=== PATIENT | male | born 1975 | race Caucasian/White ===

== ENCOUNTER 2017-05-22 08:03 | Inpatient (IN) | payer BC ==
[2017-05-22] MEDS ORDERED: Ondansetron INJ* 2 MG/ML VIAL IV ONE (08:26)
[2017-05-22] MEDS ORDERED: NS 0.9% 1000 ML* 1,000 ML IV ONE ×3 (08:26→11:15)
[2017-05-22 08:59] LABS: Hematocrit 43 % (42-52); Hemoglobin 14.6 g/dl (14.0-18.0); Mean Corpuscular HGB Conc 34 g/dl (31-36); Mean Corpuscular Hemoglobin 31 pg (27-31); Mean Corpuscular Volume 91 fL (80-94); Mean Platelet Volume 9 um3 (7.4-10.4); Red Blood Count 4.74 10^6/ul (4.0-5.4); Red Cell Distribution Width 13 % (10.5-15); White Blood Count 8.1 10^3/ul (3.5-10.8)
[2017-05-22 09:10] LABS: ALT 29 U/L (7-52); AST 17 U/L (13-39); Albumin 4.3 g/dL (3.2-5.2); Alkaline Phosphatase 58 U/L (34-104); Anion Gap 9 mmol/L (2-11); BUN/Creatinine Ratio 20.2 (8-20); Blood Urea Nitrogen 19 mg/dL (6-24); CO2 Carbon Dioxide 25 mmol/L (22-32); Calcium 8.6 mg/dL (8.6-10.3); Chloride 102 mmol/L (101-111); EGFR African American 112.6 (>60); EGFR Non-African American 87.6 (>60); Globulin 2.7 g/dL (2-4); Glucose 156 mg/dL (70-100); Potassium 3.6 mmol/L (3.5-5.0); Sodium 136 mmol/L (133-145)
[2017-05-22] MEDS ORDERED: Meclizine TAB* 12.5 MG PO ONE ×2 (09:14→11:16)
[2017-05-22] MEDS ORDERED: LORazepam INJ* 2 MG/ML 1 ML VIAL IV PUSH ONE (11:16)
[2017-05-22 14:16] LABS: Urine Bacteria Absent (Absent)
[2017-05-22 14:19] LABS: Urine Bilirubin Negative (Negative); Urine Glucose Negative (Negative); Urine Nitrite Negative (Negative)
[2017-05-22] MEDS ORDERED: Acetaminophen TAB* 325 MG PO PRN (14:47)
[2017-05-22] MEDS ORDERED: Ondansetron INJ* 2 MG/ML VIAL IV PRN (14:47)
[2017-05-22] MEDS ORDERED: Aspirin Low Dose CHEW TAB* 81 MG PO ONE ×2 (14:49→17:21)
[2017-05-22] MEDS ORDERED: NS 0.9% 1000 ML* 1,000 ML IV SCH (15:00)
[2017-05-22] MEDS ORDERED: Diazepam TAB(*) 5 MG PO SCH (15:00)
--- NOTE | 2017-05-22 15:15 | RAD ---
INDICATION: Dizziness, vomiting and nausea COMPARISON: None. TECHNIQUE: Single AP portable view of the chest was obtained. FINDINGS: Image quality is compromised due to the relative inferiority of a portable chest x-ray. The heart and mediastinum exhibit normal size and contour. The lungs are grossly clear. There is no evidence of a large pleural effusion. Visualized bones are normal for the patient's age. IMPRESSION: No radiographic evidence for acute cardiopulmonary abnormality on this portable chest x-ray.
[2017-05-22 15:24] LABS: Alcohol < 10 mg/dL (<10)
[2017-05-22] MEDS ORDERED: Iohexol 350* (CONTRAST) 500 ML MDV IV ONE (15:24)
--- NOTE | 2017-05-22 15:48 | RAD ---
INDICATION: Dizziness COMPARISON: None. TECHNIQUE: Contiguous axial sections of the brain were obtained from the skull base to the vertex without contrast. Reformats were made in the sagittal and coronal projection. FINDINGS: The ventricles, cisterns and sulci are within normal limits. The page-white matter differentiation is adequately maintained and there is no sulcal effacement. No significant focal abnormality or mass effect is present. At the right dural sinus (axial image 12 of 36, sagittal image 20 of 64) there is a hypoattenuating focus measuring up to 8 mm in greatest dimension. No significant focal osseous abnormality is present. The visualized portion of the paranasal sinuses and mastoid air cells appear clear. IMPRESSION: Overlying the right dural sinus there is an 8 mm hypoattenuating focus that is potentially a thrombus within the left dural sinus.
--- NOTE | 2017-05-22 16:04 | RAD ---
CPT II: CPT II Codes: 3100F INDICATION: Dizziness COMPARISON: Same day CT of the brain that demonstrates a filling defect in the left transverse sinus. TECHNIQUE: A CT angiogram of the head and neck was performed with 80 cc of Omnipaque 350. Contiguous axial sections were obtained from the thoracic inlet through the [place]. Images were reconstructed in the sagittal, coronal planes and in a 3-D volume rendered format. The distal cervical internal carotid artery diameter is used as the denominater for stenosis measurement. CTA NECK: The common and internal carotid arteries are patent without hemodynamically significant stenosis. Right: Just below the bifurcation the common carotid artery measures 7 mm in diameter and immediately beyond the bifurcation the internal carotid artery also measures 7 mm in diameter yielding approximately 0% degree stenosis. Left: Just below the bifurcation the common carotid artery measures 7 mm in diameter and immediately beyond the bifurcation the internal carotid artery also measures 7 mm in diameter yielding approximately 0% degree stenosis. The vertebral arteries are patent without gross abnormality. CTA of the brain: The internal carotid, anterior and middle cerebral arteries appear are patent without high grade stenosis or occlusion. The vertebral, basilar and posterior cerebral arteries appear patent without high grade stenosis or occlusion. The left posterior communicating artery is diminutive relative to the right but appears to be present, thus completing the [place]. No focal luminal filling defect, aneurysm or vascular malformation is seen. DURAL VENOUS SINUSES: As was seen on the noncontrast CT of the brain, there is an 8 mm hypoattenuating filling defect at the right transverse sinus (axial image 204 and sagittal image 19. Depicted best on the coronal plane images there are similar smaller defects partially occluding the sagittal sinus (coronal image 12, 31, 34 and 46). NONVASCULAR FINDINGS: There is moderate circumferential mucosal thickening of the right maxillary sinus and more nodular mucosal thickening of the left maxillary sinus. IMPRESSION: 1. 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 2. Normal CT arteriography of the head and neck. 3. Moderate paranasal sinus mucosal disease involving the maxillary sinuses. Findings were discussed with Felipe Pope NP over the telephone at 1600 hours on May 22, 2017.
--- NOTE | 2017-05-22 17:06 | ED ---
I, Oh,Sojanelle, scribed for Kun Israel MD on 05/22/17 at 0912 . Dizziness - HPI Summary HPI Summary: This 41 y/o male presents to ED for acute dizziness since 1999 PM yesterday. Positive n/v this morning, difficulty ambulating and with balance, and recent "head cold". Pt reports that he noticed himself listing to his right during ambulation. Negative tinnitus, hearing loss, CP, SOB, PALOMO, slurred speech, or focal weakness. Change in position makes dizziness worse. Pt is occasional drinker and nonsmoker. PMHx includes HTN that is not controlled. - History Of Current Complaint Chief Complaint: EDDizziness Stated Complaint: VOMITING Time Seen by Provider: 05/22/17 08:37 Hx Obtained From: Patient Onset/Duration: Still Present Timing: Constant Character: Room Spinning, Dizzy Aggravating Factor(s): Position Change Alleviating Factor(s): Rest Associated Signs And Symptoms: Positive: Nausea, Vomiting, Unsteady Gait. Negative: Tinnitus, Chest Pain, SOB, Fever, Slurred Speech - Allergies/Home Medications Allergies/Adverse Reactions: Allergies Allergy/AdvReac Type Severity Reaction Status Date / Time No Known Allergies Allergy Verified 05/22/17 08:36 PMH/Surg Hx/FS Hx/Imm Hx Cardiovascular History: Reports: Hx Hypertension Infectious Disease History: No Infectious Disease History: Denies: Traveled Outside the [place] in Last 30 Days - Family History Known Family History: Positive: Hypertension - Social History Alcohol Use: Daily Hx Substance Use: No Substance Use Type: Reports: None Hx Tobacco Use: No Smoking Status (MU): Never Smoked Tobacco Review of Systems Negative: Fever Negative: Other - tinnitus or loss of hearing Negative: Chest Pain Negative: Shortness Of Breath Positive: Vomiting, Nausea Neurological: Other - Positive dizziness. Difficulty with ambulation and balance. Listing to right side Negative: Headache All Other Systems Reviewed And Are Negative: Yes Physical Exam - Summary Physical Exam Summary: The patient is well-nourished in no acute distress and in no acute pain. The skin is warm and dry and skin color reflects adequate perfusion. HEENT: The head is normocephalic and atraumatic. The pupils are equal and reactive. The conjunctivae are clear and without drainage. Nares are patent and without drainage. Mouth reveals moist mucous membranes and the throat is without erythema and exudate. The external ears are intact. The ear canals are patent and without drainage. The tympanic membranes are intact. POSITIVE nystagmus. EOMI. Neck is supple with full range of motion and non-tender. There are no carotid bruits. There is no neck vein distension. Respiratory: Chest is non-tender. Lungs are clear to auscultation and breath sounds are symmetrical and equal. Cardiovascular: Hear is regular rate and rhythm. There is no murmur or rub auscultated. There is no peripheral edema and pulses are symmetrical and equal. Abdomen: The abdomen is soft and non-tender. There are normal bowel sounds heard in all four quadrants and there is no organomegaly palpated. Musculoskeletal: There is no back pain noted. Extremities are non-tender with full range of motion. There is good capillary refill. There is no peripheral edema or calf tenderness elicited. Neurological: Patient is alert and oriented to person, place and time. The patient has symmetrical motor strength in all four extremities. Deep tendon reflexes are symmetrical and equal in all four extremities. Negative pronator drift at all four extremities. Normal [id number]. Normal [id number]. No vision deficiency. Psychiatric: The patient has an appropriate affect and does not exhibit any anxiety or depression. Triage Information Reviewed: Yes Vital Signs On Initial Exam: Initial Vitals Temp Pulse Resp BP Pulse Ox 96.8 F 93 18 180/109 99 05/22/17 08:03 05/22/17 08:03 05/22/17 08:03 05/22/17 08:03 05/22/17 08:03 Vital Signs Reviewed: Yes - Maryanne Coma Scale Coma Scale Total: 15 Diagnostics - Vital Signs Vital Signs Temp Pulse Resp BP Pulse Ox 05/22/17 08:03 96.8 F 93 18 180/109 99 - Laboratory Lab Results: Lab Results 05/22/17 Range/Units 08:42 WBC 8.1 (3.5-10.8) 10^3/ul RBC 4.74 (4.0-5.4) 10^6/ul Hgb 14.6 (14.0-18.0) g/dl Hct 43 (42-52) % MCV 91 (80-94) fL MCH 31 (27-31) pg MCHC 34 (31-36) g/dl RDW 13 (10.5-15) % Plt Count 220 (150-450) 10^3/ul MPV 9 (7.4-10.4) um3 Neut % (Auto) 83.4 H (38-83) % Lymph % (Auto) 12.1 L (25-47) % Saline % (Auto) 3.3 (1-9) % Eos % (Auto) 0.7 (0-6) % Baso % (Auto) 0.5 (0-2) % Absolute Neuts (auto) 6.7 (1.5-7.7) 10^3/ul Absolute Lymphs (auto) 1.0 (1.0-4.8) 10^3/ul Absolute Monos (auto) 0.3 (0-0.8) 10^3/ul Absolute Eos (auto) 0.1 (0-0.6) 10^3/ul Absolute Basos (auto) 0 (0-0.2) 10^3/ul Absolute Nucleated RBC 0 10^3/ul Nucleated RBC % 0 Result Diagrams: 05/22/17 08:42 05/22/17 08:42 Lab Statement: Any lab studies that have been ordered have been reviewed, and results considered in the medical decision making process. - EKG 0902 Cardiac Rate: NL - 80 bpm EKG Rhythm: Sinus Rhythm EKG Interpretation: NON specific STEMI change. Normal axis. no STEMI. Re-Evaluation - Re-Evaluation First Eval Re-Evaluation Time: 11:16 Comment: MD in room to re-evaluate pt. Lab work is reviewed with pt. Pt is unsure if he is feeling better. NS IV, Lorazepam, and additional dose meclizine are ordered. Second Eval Re-Evaluation Time: 13:40 Comment: MD in room to re-evaluate pt. Pt states that he is feeling somewhat better. Pt will be evaluated to see if he can tolerate ambulation to bathroom. Third Eval Re-Evaluation Time: 14:08 Comment: in room to re-evaluate pt after the road test. Dizzy Course/Dx - Course Assessment/Plan: This 41 y/o male presents to ED for room spinning dizziness since 2000 PM last night with n/v this morning. Upon examination pt is noted with nystagmus but otherwise normal neurological exam. Bloodwork and UA is wnl except for lactic acid of 2.4. Pt was given meclizine, lorazepam, and IV NS in ED, but symptoms did not improve. Pt still had difficulty tolerating ambulation to bathroom from his ED room. Hospital consult was made with Dr. Ocasio, and he is accepted for admission. - Diagnoses Differential Diagnosis/HQI/PQRI: Other Provider Diagnoses: posterior basilar insufficiency, Vertigo - Provider Notifications Discussed Care Of Patient With: Alison Ocasio Time Discussed With Above Provider: 14:10 Instructed by Provider To: Admit As Inpatient - Critical Care Time Critical Care Time: 30-74 min - 30 minutes Discharge - Discharge Plan Condition: Stable Disposition: ADMITTED TO [facility] The documentation as recorded by the Zi mkceon Soohyun accurately reflects the service I personally performed and the decisions made by , Kun Israel MD.
[2017-05-22] MEDS ORDERED: Meclizine TAB* 12.5 MG PO PRN (17:50)
[2017-05-22] MEDS ORDERED: Thiamine IV 100 MG/ML VIAL (only for Bannana Bags !) IV SCH (18:00)
[2017-05-22] MEDS: Enoxaparin(*) 80 MG/0.8 ML SYR SUBCUT SCH (18:02)
[2017-05-22] MEDS: Thiamine IV* 500 MG in NS 0.9% 250 ML* 250 ML IV SCH (19:09)
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
[2017-05-23 05:03] LABS: BUN/Creatinine Ratio 10.5 (8-20); Calcium 7.8 mg/dL (8.6-10.3); EGFR African American 124.8 (>60); EGFR Non-African American 97.1 (>60); HDL Cholesterol 41.1 mg/dL; Potassium 3.1 mmol/L (3.5-5.0)
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
[2017-05-23 05:14] LABS: Hematocrit 38 % (42-52); Hemoglobin 12.8 g/dl (14.0-18.0); Mean Corpuscular HGB Conc 34 g/dl (31-36); Mean Corpuscular Hemoglobin 31 pg (27-31); Mean Corpuscular Volume 91 fL (80-94); Mean Platelet Volume 9 um3 (7.4-10.4); Red Blood Count 4.14 10^6/ul (4.0-5.4); Red Cell Distribution Width 13 % (10.5-15); White Blood Count 9.8 10^3/ul (3.5-10.8)
[2017-05-23] MEDS: Enoxaparin(*) 100 MG/ML SYR SUBCUT SCH ×2 (06:00→17:46)
[2017-05-23] MEDS: Enoxaparin(*) 80 MG/0.8 ML SYR SUBCUT SCH (06:01)
[2017-05-23] MEDS: Thiamine IV* 500 MG in NS 0.9% 250 ML* 250 ML IV SCH (08:17)
[2017-05-23] MEDS: Aspirin Low Dose CHEW TAB* 81 MG PO SCH (08:18)
--- NOTE | 2017-05-23 11:43 | RAD ---
Indication: Vertigo. MRV of the brain was performed utilizing 2-D viqo-mr-gazpby technique. Multiple maximum intensity projected images were obtained. The sagittal sinus, vein of Catarino and the straight sinus all appear to be patent. There is a filling defect in the right transverse sinus however no obstruction of flow is noted. This is felt to represent an arachnoid granulation. The left transverse sinus is hypoplastic. The internal jugular veins are patent. IMPRESSION: Filling defect in the right transverse sinus. This is felt to represent arachnoid granulations. No obstruction is noted. Dominant right transverse sinus.
--- NOTE | 2017-05-23 12:48 | PN ---
Subjective Date of Service: 05/23/17 Interval History: Pt continues to c/o everything spinning when he opens his eyes, worse when moving his head. Denies double vision.Nausea present yesterday resolved. Objective Active Medications: Acetaminophen (Tylenol Tab*) 650 mg PO Q4H PRN PRN Reason: FEVER/PAIN Aspirin (Aspirin Low Dose Tab*) 81 mg PO DAILY [facility] Last Admin: 05/23/17 08:18 Dose: 81 mg Atorvastatin Calcium (Lipitor*) 40 mg PO 1700 MARY Enoxaparin Sodium (Lovenox(*)) 88 mg SUBCUT Q12H [facility] Last Admin: 05/23/17 06:00 Dose: 88 mg Thiamine HCl 500 mg/ Sodium (Chloride) 255 mls @ 510 mls/hr IV DAILY [facility] Last Admin: 05/23/17 08:17 Dose: 510 mls/hr Meclizine HCl (Antivert Tab*) 25 mg PO Q8HR PRN PRN Reason: DIZZINESS Last Admin: 05/23/17 08:17 Dose: 25 mg Ondansetron HCl (Zofran Inj*) 4 mg IV Q6H PRN PRN Reason: NAUSEA Last Admin: 05/22/17 17:58 Dose: 4 mg Vital Signs 05/23/17 05/23/17 11:05 11:15 Temperature 98.4 F Pulse Rate 76 Respiratory 10 16 Rate Blood Pressure 160/98 (mmHg) O2 Sat by Pulse 93 Oximetry Oxygen Devices in Use Now: None Appearance: 41 yo M in nAd, aAOx3 Eyes: No Scleral Icterus, PERRLA Ears/Nose/Mouth/Throat: NL Teeth, Lips, Gums, Mucous Membranes Moist Neck: NL Appearance and Movements; NL JVP, Trachea Midline Respiratory: Symmetrical Chest Expansion and Respiratory Effort, Clear to Auscultation Cardiovascular: NL Sounds; No Murmurs; No JVD, RRR Abdominal: NL Sounds; No Tenderness; No Distention, No Hepatosplenomegaly Lymphatic: No Cervical Adenopathy Extremities: No Edema, No Clubbing, Cyanosis Skin: No Rash or Ulcers, No Nodules or Sclerosis Neurological: Alert and Oriented x 3, - - multidirectional nystagmus present in both eyes. finger to nose not dysmetric, motor 5/5 b/l, speech clear. significant ataxia, unable to stand up without being propped by the bed. Result Diagrams: 05/23/17 04:27 05/23/17 04:26 Additional Lab and Data: Lab Results 05/22/17 Range/Units 08:42 WBC 8.1 (3.5-10.8) 10^3/ul RBC 4.74 (4.0-5.4) 10^6/ul Hgb 14.6 (14.0-18.0) g/dl Hct 43 (42-52) % MCV 91 (80-94) fL MCH 31 (27-31) pg MCHC 34 (31-36) g/dl RDW 13 (10.5-15) % Plt Count 220 (150-450) 10^3/ul MPV 9 (7.4-10.4) um3 Neut % (Auto) 83.4 H (38-83) % Lymph % (Auto) 12.1 L (25-47) % Storey % (Auto) 3.3 (1-9) % Eos % (Auto) 0.7 (0-6) % Baso % (Auto) 0.5 (0-2) % Absolute Neuts (auto) 6.7 (1.5-7.7) 10^3/ul Absolute Lymphs (auto) 1.0 (1.0-4.8) 10^3/ul Absolute Monos (auto) 0.3 (0-0.8) 10^3/ul Absolute Eos (auto) 0.1 (0-0.6) 10^3/ul Absolute Basos (auto) 0 (0-0.2) 10^3/ul Absolute Nucleated RBC 0 10^3/ul Nucleated RBC % 0 Assess/Plan/Problems-Billing Assessment: 41 yo M with h/o HTN(not treated) presents with sudden onset of "dizziness". 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 MRV neg. MRI brain pending. Echo with bubble pending Cont full anticoagulation with lovenox and ASA. Appreciate neurology consult. D/w Dr. Haji hypercoag w/up pending Will start lipitor for LDL at 99. (2) DVT prophylaxis Comment: lovenox Status and Disposition: inpatient
[2017-05-23] MEDS ORDERED: Potassium Chlor TAB* 20 MEQ TAB.ER PO ONE (13:01)
--- NOTE | 2017-05-23 15:33 | ECHO ---
Patient: QUITA ANNE [facility] Rec#: [id number] : 1975 Date: 05/23/2017 Age: 41y Height: 175.26 cm / 69.0 in Weight: 88.45 kg / 194.9 lbs Sex: M BSA: 2.04 Room#: 431 Admit Date#: 05/22/2017 Type: Inpatient Referring: Felipe Pope NP Reading: Lyle Hurt MD Elementary [employer] Teacher: Kayce Howe RDCS,RDMS Transthoracic Echocardiogram Indication: CVA BP: 138/84 HR: 82 Rhythm: NSR Findings History: HTN Technical Comments: The study quality is good. Completed 1420 Left Ventricle: The left ventricular chamber size is normal.Borderline LVH The estimated ejection fraction is 60-65%. Normal left ventricular diastolic filling is observed. Left Atrium: The left atrial chamber size is normal. Right Ventricle: The right ventricular chamber size and systolic function are within normal limits. Right Atrium: The right atrial cavity size is normal. A patent foramen ovale is not demonstrated with color Doppler and agitated contrast. Aortic Valve: The aortic valve is trileaflet. There is no evidence of aortic valve thickening. Systolic excursion of the aortic valve is normal. There is mild aortic regurgitation. There is no evidence of aortic stenosis. Mitral Valve: The mitral valve leaflets appear normal. There is a trace of mitral regurgitation. There is no evidence of mitral stenosis. Tricuspid Valve: The tricuspid valve leaflets are normal. There is trace tricuspid regurgitation. Unable to estimate the right ventricular systolic pressure. Pulmonic Valve: There is no evidence of pulmonic valve thickening. There is a trace pulmonic regurgitation. Pericardium: There is no significant pericardial effusion. Aorta: There is mild dilatation of the ascending aorta. There is no dilatation of the aortic arch. There is no dilation of the aortic root. Pulmonary Artery: The main pulmonary artery is not well visualized. Venous: The inferior vena cava appears normal in size. There is an approximate 50% respiratory change in the inferior vena cava dimension. Contrast: Intravenous agitated saline contrast was used to assess intracardiac shunting. Images 79 and 80 Summary: There was not any prior study for comparison. Conclusions The left ventricular chamber size is normal. Borderline LVH The estimated ejection fraction is 60-65%. There is mild aortic regurgitation. There is a trace of mitral regurgitation. There is trace tricuspid regurgitation. There is a trace pulmonic regurgitation. There is mild dilatation of the ascending aorta. Measurements Name Value Normal Range RVIDd (AP) 2D 2 cm (0.9 - 2.6) RVDdMajor (2D) 2.7 cm (2.2 - 4.4) RAd ISD 4CH 4.7 cm (3.4 - 4.9) RA (A4C)W 3.9 cm (2.9 - 4.6) IVSd (2D) 1.1 cm (0.6 - 1) LVPWd (2D) 1.1 cm (0.6 - 1) LVIDd (2D) 4.5 cm (3.6 - 5.4) LVIDs (2D) 3.1 cm - LV FS (2D) 30 % (25 - 45) Aortic Annulus 2.2 cm (1.4 - 2.6) Ao root diameter (2D) 3.4 cm (2.1 - 3.5) Ascending Ao 3.8 cm (2.1 - 3.4) Aortic arch 3.2 cm (1.8 - 3.4) LA dimension (AP) 2D 3.5 cm (2.3 - 3.8) LAd ISD 4CH 5.6 cm (2.9 - 5.3) LA ISD 4CH W 3.7 cm (2.5 - 4.5) Name Value Normal Range LA ESV SP 4CH (A/L) 42.53 ml - LA ESV SP 2CH (A/L) 40.12 ml - LA ESV BP (A/L) 43.83 ml - LA ESV BP (A/L) index 21.4 ml/m2 - LA ESV SP 4CH (MOD) 40.29 ml - LA ESV SP 2CH (MOD) 36.72 ml - Name Value Normal Range MV E-wave Vmax 1 m/sec - MV deceleration time 145 msec - MV A-wave Vmax 0.7 m/sec - MV E:A ratio 1.4 ratio - P. vein S-wave Vmax 0.5 m/sec - P. vein D-wave Vmax 0.4 m/sec - P. vein S:D Vmax ratio 1.3 ratio - P. vein A-wave duration 90 msec - LV septal e' Vmax 0.09 m/sec - LV lateral e' Vmax 0.1 m/sec - LV E:e' septal ratio 11 ratio - LV E:e' lateral ratio 10 ratio - Name Value Normal Range AV Vmax 1.5 m/sec - AV VTI 32 cm - AV peak gradient 9 mmHg - AV mean gradient 5.6 mmHg - LVOT Vmax 1.3 m/sec - LVOT VTI 24.7 cm - LVOT peak gradient 7 mmHg - LVOT mean gradient 3.3 mmHg - LIDA Vmax 0.9 m/sec - Name Value Normal Range RAP 8 mmHg - IVC diameter 1.9 cm - Name Value Normal Range PV Vmax 0.7 m/sec - PV peak gradient 2 mmHg -
[2017-05-23] MEDS: Atorvastatin* 40 MG TAB PO SCH (17:45)
[2017-05-24] MEDS: Omeprazole CAP* 20 MG PO SCH (05:20)
[2017-05-24] MEDS: Enoxaparin(*) 100 MG/ML SYR SUBCUT SCH ×2 (05:20→19:54)
--- NOTE | 2017-05-24 07:45 | RAD ---
INDICATION: Headaches, dizziness. Image sequences: Sagittal and axial T1, axial T2, FLAIR, diffusion and susceptibility weighted images of the brain were obtained. Ventricular structures are midline. No midline shift is noted. The extra-axial spaces are unremarkable. There is no evidence of intracranial mass or hemorrhage. Signal abnormality is noted in the right frontal lobe. This may represent an old infarct; however, contrast study is suggested to exclude a mass. Tiny area of restriction of diffusion is noted in the right medulla which may represent a tiny infarct. Prominent Virchow David spaces Are noted. Mucosal thickening of the maxillary sinuses are noted. Mastoid air cells and paranasal sinuses are otherwise remarkable. There is focal abnormality involving the right dural sinus which is consistent with an arachnoid granulation. 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 Signal abnormality in the right frontal lobe without restriction of diffusion. Postcontrast study is suggested to exclude an enhancing mass. No other masses are noted. Chronic sinusitis involving the maxillary sinuses. Defect in the right transverse sinus likely represents an arachnoid granulation.
[2017-05-24] MEDS: Aspirin Low Dose CHEW TAB* 81 MG PO SCH (09:06)
[2017-05-24] MEDS: Thiamine IV* 500 MG in NS 0.9% 250 ML* 250 ML IV SCH (09:06)
--- NOTE | 2017-05-24 11:02 | PN ---
Subjective Date of Service: 05/24/17 Objective Active Medications: Acetaminophen (Tylenol Tab*) 650 mg PO Q4H PRN PRN Reason: FEVER/PAIN Aspirin (Aspirin Low Dose Tab*) 81 mg PO DAILY [facility] Last Admin: 05/24/17 09:06 Dose: 81 mg Atorvastatin Calcium (Lipitor*) 40 mg PO 1700 [facility] Last Admin: 05/23/17 17:45 Dose: 40 mg Enoxaparin Sodium (Lovenox(*)) 88 mg SUBCUT Q12H [facility] Last Admin: 05/24/17 05:20 Dose: 88 mg Thiamine HCl 500 mg/ Sodium (Chloride) 255 mls @ 510 mls/hr IV DAILY [facility] Last Admin: 05/24/17 09:06 Dose: 510 mls/hr Meclizine HCl (Antivert Tab*) 25 mg PO Q8HR PRN PRN Reason: DIZZINESS Last Admin: 05/23/17 08:17 Dose: 25 mg Omeprazole (Prilosec Cap*) 20 mg PO 0600 [facility] Last Admin: 05/24/17 05:20 Dose: 20 mg Ondansetron HCl (Zofran Inj*) 4 mg IV Q6H PRN PRN Reason: NAUSEA Last Admin: 05/22/17 17:58 Dose: 4 mg Vital Signs 05/23/17 05/23/17 05/23/17 11:05 11:15 12:00 Temperature 98.4 F Pulse Rate 76 Respiratory 10 16 13 Rate Blood Pressure 160/98 (mmHg) O2 Sat by Pulse 93 Oximetry 05/23/17 05/23/17 05/23/17 13:00 14:02 15:00 Temperature Pulse Rate Respiratory 6 18 3 Rate Blood Pressure (mmHg) O2 Sat by Pulse Oximetry 05/23/17 05/23/17 05/23/17 15:10 16:00 17:00 Temperature 97.8 F Pulse Rate 76 Respiratory 20 0 0 Rate Blood Pressure 154/101 (mmHg) O2 Sat by Pulse 95 Oximetry 05/23/17 05/23/17 05/23/17 18:00 19:00 19:29 Temperature 98.5 F Pulse Rate 84 Respiratory 0 0 20 Rate Blood Pressure 160/89 (mmHg) O2 Sat by Pulse 95 Oximetry 05/23/17 05/23/17 05/23/17 20:00 20:25 21:00 Temperature Pulse Rate Respiratory 2 20 0 Rate Blood Pressure (mmHg) O2 Sat by Pulse Oximetry 05/23/17 05/23/17 05/23/17 22:00 23:00 23:26 Temperature 98.6 F Pulse Rate 74 Respiratory 0 0 16 Rate Blood Pressure 143/89 (mmHg) O2 Sat by Pulse 96 Oximetry 05/23/17 05/24/17 05/24/17 23:57 00:00 01:00 Temperature Pulse Rate Respiratory 0 0 19 Rate Blood Pressure (mmHg) O2 Sat by Pulse Oximetry 05/24/17 05/24/17 05/24/17 02:00 03:00 03:32 Temperature 98.3 F Pulse Rate 70 Respiratory 22 17 16 Rate Blood Pressure 138/86 (mmHg) O2 Sat by Pulse 96 Oximetry 05/24/17 05/24/17 05/24/17 04:00 07:12 08:00 Temperature 98.6 F Pulse Rate 70 Respiratory 0 16 16 Rate Blood Pressure 143/88 (mmHg) O2 Sat by Pulse 93 Oximetry Oxygen Devices in Use Now: None Result Diagrams: 05/23/17 04:27 05/23/17 04:26 Additional Lab and Data: Lab Results 05/22/17 Range/Units 08:42 WBC 8.1 (3.5-10.8) 10^3/ul RBC 4.74 (4.0-5.4) 10^6/ul Hgb 14.6 (14.0-18.0) g/dl Hct 43 (42-52) % MCV 91 (80-94) fL MCH 31 (27-31) pg MCHC 34 (31-36) g/dl RDW 13 (10.5-15) % Plt Count 220 (150-450) 10^3/ul MPV 9 (7.4-10.4) um3 Neut % (Auto) 83.4 H (38-83) % Lymph % (Auto) 12.1 L (25-47) % Hubbard % (Auto) 3.3 (1-9) % Eos % (Auto) 0.7 (0-6) % Baso % (Auto) 0.5 (0-2) % Absolute Neuts (auto) 6.7 (1.5-7.7) 10^3/ul Absolute Lymphs (auto) 1.0 (1.0-4.8) 10^3/ul Absolute Monos (auto) 0.3 (0-0.8) 10^3/ul Absolute Eos (auto) 0.1 (0-0.6) 10^3/ul Absolute Basos (auto) 0 (0-0.2) 10^3/ul Absolute Nucleated RBC 0 10^3/ul Nucleated RBC % 0 Assess/Plan/Problems-Billing Assessment: 41 yo M with h/o HTN(not treated) presents with sudden onset of "dizziness". 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 MRV neg. MRI brain pending. Echo with bubble pending Cont full anticoagulation with lovenox and ASA. Appreciate neurology consult. D/w Dr. Haji hypercoag w/up pending Will start lipitor for LDL at 99. (2) DVT prophylaxis Comment: lovenox Status and Disposition: inpatient
--- NOTE | 2017-05-24 11:09 | PN ---
Subjective Date of Service: 05/24/17 Interval History: Pt feels better, nystagmus improving, able to ambulate short distance with walker Objective Active Medications: Acetaminophen (Tylenol Tab*) 650 mg PO Q4H PRN PRN Reason: FEVER/PAIN Aspirin (Aspirin Low Dose Tab*) 81 mg PO DAILY [facility] Last Admin: 05/24/17 09:06 Dose: 81 mg Atorvastatin Calcium (Lipitor*) 40 mg PO 1700 [facility] Last Admin: 05/23/17 17:45 Dose: 40 mg Enoxaparin Sodium (Lovenox(*)) 88 mg SUBCUT Q12H [facility] Last Admin: 05/24/17 05:20 Dose: 88 mg Meclizine HCl (Antivert Tab*) 25 mg PO Q8HR PRN PRN Reason: DIZZINESS Last Admin: 05/23/17 08:17 Dose: 25 mg Omeprazole (Prilosec Cap*) 20 mg PO 0600 [facility] Last Admin: 05/24/17 05:20 Dose: 20 mg Ondansetron HCl (Zofran Inj*) 4 mg IV Q6H PRN PRN Reason: NAUSEA Last Admin: 05/22/17 17:58 Dose: 4 mg Vital Signs 05/23/17 05/23/17 05/23/17 11:15 12:00 13:00 Temperature 98.4 F Pulse Rate 76 Respiratory 16 13 6 Rate Blood Pressure 160/98 (mmHg) O2 Sat by Pulse 93 Oximetry 05/23/17 05/23/17 05/23/17 14:02 15:00 15:10 Temperature 97.8 F Pulse Rate 76 Respiratory 18 3 20 Rate Blood Pressure 154/101 (mmHg) O2 Sat by Pulse 95 Oximetry 05/23/17 05/23/17 05/23/17 16:00 17:00 18:00 Temperature Pulse Rate Respiratory 0 0 0 Rate Blood Pressure (mmHg) O2 Sat by Pulse Oximetry 05/23/17 05/23/17 05/23/17 19:00 19:29 20:00 Temperature 98.5 F Pulse Rate 84 Respiratory 0 20 2 Rate Blood Pressure 160/89 (mmHg) O2 Sat by Pulse 95 Oximetry 05/23/17 05/23/17 05/23/17 20:25 21:00 22:00 Temperature Pulse Rate Respiratory 20 0 0 Rate Blood Pressure (mmHg) O2 Sat by Pulse Oximetry 05/23/17 05/23/17 05/23/17 23:00 23:26 23:57 Temperature 98.6 F Pulse Rate 74 Respiratory 0 16 0 Rate Blood Pressure 143/89 (mmHg) O2 Sat by Pulse 96 Oximetry 05/24/17 05/24/17 05/24/17 00:00 01:00 02:00 Temperature Pulse Rate Respiratory 0 19 22 Rate Blood Pressure (mmHg) O2 Sat by Pulse Oximetry 05/24/17 05/24/17 05/24/17 03:00 03:32 04:00 Temperature 98.3 F Pulse Rate 70 Respiratory 17 16 0 Rate Blood Pressure 138/86 (mmHg) O2 Sat by Pulse 96 Oximetry 05/24/17 05/24/17 07:12 08:00 Temperature 98.6 F Pulse Rate 70 Respiratory 16 16 Rate Blood Pressure 143/88 (mmHg) O2 Sat by Pulse 93 Oximetry Oxygen Devices in Use Now: None Appearance: 41 yo M in nAd, aAOx3 Eyes: No Scleral Icterus, PERRLA Ears/Nose/Mouth/Throat: NL Teeth, Lips, Gums, Mucous Membranes Moist Neck: NL Appearance and Movements; NL JVP, Trachea Midline Respiratory: Symmetrical Chest Expansion and Respiratory Effort, Clear to Auscultation Cardiovascular: NL Sounds; No Murmurs; No JVD, RRR Abdominal: NL Sounds; No Tenderness; No Distention Lymphatic: No Cervical Adenopathy Extremities: No Edema, No Clubbing, Cyanosis Skin: No Rash or Ulcers, No Nodules or Sclerosis Neurological: Alert and Oriented x 3, - - nystagmus-improved. Ataxic gati- much better, but still needs one assit and a walker Result Diagrams: 05/23/17 04:27 05/23/17 04:26 Additional Lab and Data: Lab Results 05/22/17 Range/Units 08:42 WBC 8.1 (3.5-10.8) 10^3/ul RBC 4.74 (4.0-5.4) 10^6/ul Hgb 14.6 (14.0-18.0) g/dl Hct 43 (42-52) % MCV 91 (80-94) fL MCH 31 (27-31) pg MCHC 34 (31-36) g/dl RDW 13 (10.5-15) % Plt Count 220 (150-450) 10^3/ul MPV 9 (7.4-10.4) um3 Neut % (Auto) 83.4 H (38-83) % Lymph % (Auto) 12.1 L (25-47) % [place] % (Auto) 3.3 (1-9) % Eos % (Auto) 0.7 (0-6) % Baso % (Auto) 0.5 (0-2) % Absolute Neuts (auto) 6.7 (1.5-7.7) 10^3/ul Absolute Lymphs (auto) 1.0 (1.0-4.8) 10^3/ul Absolute Monos (auto) 0.3 (0-0.8) 10^3/ul Absolute Eos (auto) 0.1 (0-0.6) 10^3/ul Absolute Basos (auto) 0 (0-0.2) 10^3/ul Absolute Nucleated RBC 0 10^3/ul Nucleated RBC % 0 Assess/Plan/Problems-Billing Assessment: 41 yo M with h/o HTN(not treated) presents with sudden onset of "dizziness". H/o recent travel to [place] and [place] - Patient Problems (1) Nystagmus Comment: MRV neg. MRI brain shows brain stem CVA. Echo with bubble neg for PFO. Cont full anticoagulation with lovenox and ASA. Appreciate neurology consult. D/w Dr. Haji hypercoag w/up pending Lipitor started for LDL at 99. PMRU eval today (2) DVT prophylaxis Comment: lovenox (3) HTN (hypertension) Comment: SBP's in 140's, cont permissive HTN Status and Disposition: inpatient
[2017-05-24 11:59] LABS: Protein C Activity 115 % (70 - 150)
[2017-05-24 12:15] LABS: LAC APTT 31 sec (26 - 36); Lac DRVVT Screen Ratio 0.9 ratio (0.0 - 1.1); Prothrombin Time(LAC) 11.5 sec
--- NOTE | 2017-05-24 12:43 | PN ---
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 Rivera regarding progressive unsteadiness and change in vision most suggestive of acute stroke. He has had no new symptoms since yesterday. PHYSICAL EXAMINATION: On examination today, there was a regular cardiac rhythm. His lungs were clear to auscultation. There was no carotid bruit. He had no evidence of rash. No cord to palpation in his calves. His peripheral pulses were intact. There was no petechiae. He had full extraocular movements ; however, there was nystagmus in all gazes which appeared to be vertical and he was nauseous with eye movement. He has full lawrence to confrontation. His facial expression, sensation, and hearing were equal. Palate was upcoming. Tongue was midline. Sternocleidomastoid and trapezius were 5/5 in strength. There was normal bulk and tone, right pronator drift with good strength with the exception of give in 5-/5 in the right deltoid and a question of slight give in the right proximal leg. He had no evidence of dysmetria with finger-to- nose and [id number] movements outside of that was expected for weakness in the right arm. He had reflexes that were 2+ and symmetric in the upper and lower extremities. His light touch, cold and sharp sensation were symmetric between arms and legs. When he stood, he was quite off balance and required his feet at the stance of 2 feet. He was holding on to the examiner. He could be on to his toes and his heels. He leaned against the bed for stability when he stood. MEDICATIONS: Currently include: 1. Tylenol 650 mg p.o. q.4 hours. 2. Aspirin 81 mg p.o. q. day. 3. Lipitor 40 mg p.o. q. 1700. 4. Lovenox 88 mg subcutaneous q.12 hours. 5. Antivert 25 mg p.o. q.8 hours p.r.n. dizziness. 6. Ondansetron 4 mg q.6 hours p.r.n. nausea. 7. Thiamine 255 mL IV daily. LABORATORY DATA: MRI of the brain was performed as well as MRV. MRV showed no evidence of thrombosis. It was felt the changes noted on CT were arachnoid granulation. The MRI of the brain is still yet to be read by Radiology; however , in my review there appears to be a small right medullary ischemic lesion. Film was reviewed directly and discussed with the patient. Echocardiogram with bubble study is pending. Of note, he indicates that his father had an abnormality in a valve that may be inherited and could be increased risk a stroke. He is unclear of the name of it, will be enquiring. His lipids showed triglyceride of 223, cholesterol was 185, LDL 99, and HDL 41. His hemoglobin A1c was 5.6 and TSH was 0.80. His troponin I was 0, his lactic acid initially was 2.4, repeat at 1.2. His nonfasting glucose initially was 156 with a BUN and creatinine ration of 20.2. His CBC showed a initial normal white count, hemoglobin, hematocrit, and platelets. His hemoglobin and hematocrit decreased to 12.8 and 38 respectively on repeat testing today. His initial neutrophil percentage was elevated and is now within normal limits. Lymphocyte percentage slow. Urinalysis showed no significant findings. 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 One of his most significant risk factors is hypertension. At this point, we will allow high blood pressure to help with perfusion. If his blood pressure is persistently above 180/100, particularly with him starting to mobilize, then I would consider treatment. Otherwise we have permissive hypertension until symptoms stabilize. He has been started on aspirin. Initially he was put on to Lovenox due to question of venous thrombosis. For now we will continue it given his decreased mobility, as well as while he is undergoing workup for potential cardioembolic source looking in his heart for evidence of thrombus. Echocardiogram with bubble study is pending. If there is not a good view, we may want to consider a transesophageal echocardiogram. Statin has been added to his regimen and education was given on why this would be helpful. I have discussed with Dr. Bill adding GI prophylaxis. Hypercoagulable workup is pending. He needs physical therapy and occupational therapy and with the extent that he is impaired, rehabilitation may be extremely helpful. Education was given regarding diagnosis, prognosis, workup, treatment of stroke with the patient and with his on cell phone. He is also on meclizine and ondansetron for vertigo and nausea. Thiamine has been given in supplementation with a history of drinking 3 beers a day. TIME SPENT: Over 45 minutes was spent in direct [id number] patient care, over 50% of the time was spent in education and counseling regarding stroke, potential etiologies, work up, treatment, unclear prognosis. All questions were answered. [id number]/[facility] #: [id number] ALEKSANDAR
[2017-05-24] MEDS: Atorvastatin* 40 MG TAB PO SCH (16:21)
[2017-05-24] MEDS: VITAMIN D3 1000 UNIT PO SCH (16:22)
[2017-05-24] MEDS: FATTY ACIDS PO SCH (16:22)
[2017-05-24] MEDS: [UNRECOGNIZED DRUG - OTHER] PO SCH (16:22)
[2017-05-24] MEDS: OMEGA PO SCH (16:22)
[2017-05-24] MEDS: B COMPLEX PO SCH (16:22)
[2017-05-24 17:12] LABS: Phospholipid Ab IgG < 9.4 GPL; Phospholipid Ab IgM, S < 9.4 MPL
[2017-05-25 05:15] LABS: BUN/Creatinine Ratio 14.9 (8-20); Calcium 8.6 mg/dL (8.6-10.3); EGFR African American 112.6 (>60); EGFR Non-African American 87.6 (>60); Potassium 3.6 mmol/L (3.5-5.0)
[2017-05-25] MEDS: Enoxaparin(*) 100 MG/ML SYR SUBCUT SCH ×2 (05:54→17:36)
[2017-05-25] MEDS: Omeprazole CAP* 20 MG PO SCH ×2 (07:12→21:49)
[2017-05-25] MEDS: VITAMIN D3 1000 UNIT PO SCH ×2 (07:56→21:55)
[2017-05-25] MEDS: Aspirin Low Dose CHEW TAB* 81 MG PO SCH ×2 (07:56→21:51)
[2017-05-25] MEDS: OMEGA PO SCH ×2 (07:56→21:52)
[2017-05-25] MEDS: B COMPLEX PO SCH ×2 (07:56→21:54)
[2017-05-25] MEDS: FATTY ACIDS PO SCH ×2 (07:56→21:52)
[2017-05-25] MEDS: [UNRECOGNIZED DRUG - OTHER] PO SCH ×2 (07:56→21:52)
--- NOTE | 2017-05-25 13:40 | PN ---
PROGRESS NOTE: DATE OF FOLLOWUP: 05/24/17 HISTORY OF PRESENT ILLNESS: Mr. Trevizo has improved overnight. He has noted that his gait is a little bit easier with a walker, but still unsteady. He has had some improvement of his vision; however, there is still significant vision instability. He denies any new symptoms. He had many questions on today's visit which were covered regarding stroke. PHYSICAL EXAMINATION: On examination, most recent blood pressure was 157/101, pulse was 70, saturation 98%, and temperature 98.6 degrees Fahrenheit, respiratory rate 20. He had a normal S1, S2. No murmur. No carotid bruits. His lungs were clear to auscultation. He was awake, alert, articulate. He had full extraocular movements with slight instability noted; however, nystagmus was almost gone. He had full lawrence to confrontation. His facial expression was symmetric. There was no dysarthria. There was no pronator drift. He gave good resistance on today's visit in his arms and his legs. There was perhaps light instability with finger-to- nose movements on the right. Rvna-wq-[id number] were okay. He walked with a walker with increased stance at about 6 inches. LABORATORY DATA: Data includes transthoracic echocardiogram with no evidence of PFO on bubble study, borderline LVH, mild AR, trace MR, TR, CA. There was mild dilatation of the aortic arch. Please see report for details. This echocardiogram report was reviewed and I spoke to Dr. Lyle Hurt. Hypercoagulable workup is still pending. Thus far, he has had a negative antithrombin III. Normal protein C and S activity. Negative protein C resistance and his lupus anticoagulant was negative based on PT. IMPRESSION: Mr. Trevizo is a 41-year-old gentleman with a brainstem stroke with small ischemic lesion in the right medulla oblongata with risk factors of untreated hypertension, on aspirin, atorvastatin and Lovenox. Hypercoagulable work is still pending and we have added factor V Leiden. In addition, I will add beta-2 glycoprotein. His anticardiolipin antibody and factor II prothrombin are pending. For differential diagnosis of vasculitis, we will check AASHISH and sed rate; however, there is no other stigmata of vasculitis. We reviewed symptoms of sleep apnea and were unable to identify any significant symptoms on today's visit. He remarks that he may occasionally snore. We reviewed different stroke risk factors. The main risk factor is his untreated hypertension. He does have a family history of an abnormal aortic valve in his father and he describes it as being abnormal number of leaflets on the aortic valve with fusion of leaflets. Accordingly, we will plan to proceed with a transesophageal echocardiogram with bubble study given age, given history of father's abnormal aortic valve structure, and after discussion with Cardiology. I am pleased to see how well he is doing. This goes with a better prognosis. Education was provided regarding etiology as the stroke workup done to date, further tests, and current treatment. He is working with PT and OT and rehab consult is pending. TIME SPENT: Over 45 minutes was spent in patient care, over 50% of that time was spent in education and counseling the patient regarding above issues. [id number]/[facility] #: [id number] ALEKSANDAR
--- NOTE | 2017-05-25 14:06 | PN ---
Subjective Date of Service: 05/25/17 Interval History: pt feels well. Vision and gait is improving, but today noted more of R facial numbness that was there before, but he didn't mention it prior. Walked with a walker independently >200 ft. Objective Active Medications: Acetaminophen (Tylenol Tab*) 650 mg PO Q4H PRN PRN Reason: FEVER/PAIN Aspirin (Aspirin Low Dose Tab*) 81 mg PO DAILY [facility] Last Admin: 05/25/17 07:56 Dose: Not Given Atorvastatin Calcium (Lipitor*) 40 mg PO 1700 [facility] Last Admin: 05/24/17 16:21 Dose: 40 mg Enoxaparin Sodium (Lovenox(*)) 88 mg SUBCUT Q12H [facility] Last Admin: 05/25/17 05:54 Dose: 88 mg Fish Oil (Fish Oil (Nf)) 1,000 mg PO DAILY [facility] Last Admin: 05/25/17 07:56 Dose: Not Given Lactobacillus Rhamnosus (Culturelle*) 1 cap PO DAILY [facility] Last Admin: 05/25/17 07:56 Dose: Not Given Meclizine HCl (Antivert Tab*) 25 mg PO Q8HR PRN PRN Reason: DIZZINESS Last Admin: 05/23/17 08:17 Dose: 25 mg Pto: B Complex (Drops) 0 dose PO DAILY [facility] Last Admin: 05/25/17 07:56 Dose: Not Given Pto: Vitamin D3 (1000 Units Drops) 0 dose PO DAILY [facility] Last Admin: 05/25/17 07:56 Dose: Not Given Omeprazole (Prilosec Cap*) 20 mg PO 0600 [facility] Last Admin: 05/25/17 07:12 Dose: Not Given Ondansetron HCl (Zofran Inj*) 4 mg IV Q6H PRN PRN Reason: NAUSEA Last Admin: 05/22/17 17:58 Dose: 4 mg Vital Signs 05/24/17 05/24/17 05/24/17 15:32 19:16 20:00 Temperature 98.6 F 98.2 F Pulse Rate 70 66 Respiratory 16 16 Rate Blood Pressure 157/101 139/89 (mmHg) O2 Sat by Pulse 98 97 Oximetry 05/24/17 05/24/17 05/25/17 20:24 23:21 03:26 Temperature 98.7 F 98.5 F Pulse Rate 70 71 Respiratory 16 16 Rate Blood Pressure 136/90 134/92 (mmHg) O2 Sat by Pulse 91 96 93 Oximetry 05/25/17 05/25/17 05/25/17 07:49 07:52 08:00 Temperature 98.2 F Pulse Rate 79 Respiratory 14 16 Rate Blood Pressure 148/108 140/90 (mmHg) O2 Sat by Pulse 97 Oximetry 05/25/17 11:15 Temperature 97.5 F Pulse Rate 66 Respiratory 12 Rate Blood Pressure 157/99 (mmHg) O2 Sat by Pulse 98 Oximetry Oxygen Devices in Use Now: None Appearance: 41 yo F in nAD, AAOx3 Eyes: No Scleral Icterus, PERRLA Ears/Nose/Mouth/Throat: NL Teeth, Lips, Gums, Mucous Membranes Moist Neck: NL Appearance and Movements; NL JVP, Trachea Midline Respiratory: Symmetrical Chest Expansion and Respiratory Effort, Clear to Auscultation Cardiovascular: NL Sounds; No Murmurs; No JVD, RRR Abdominal: NL Sounds; No Tenderness; No Distention Lymphatic: No Cervical Adenopathy Extremities: No Edema, No Clubbing, Cyanosis Skin: No Rash or Ulcers, No Nodules or Sclerosis Neurological: - - ataxia improving. Nystagmus less prominent. motor 5/5 b/l Result Diagrams: 05/23/17 04:27 05/25/17 04:19 Additional Lab and Data: Lab Results 05/22/17 Range/Units 08:42 WBC 8.1 (3.5-10.8) 10^3/ul RBC 4.74 (4.0-5.4) 10^6/ul Hgb 14.6 (14.0-18.0) g/dl Hct 43 (42-52) % MCV 91 (80-94) fL MCH 31 (27-31) pg MCHC 34 (31-36) g/dl RDW 13 (10.5-15) % Plt Count 220 (150-450) 10^3/ul MPV 9 (7.4-10.4) um3 Neut % (Auto) 83.4 H (38-83) % Lymph % (Auto) 12.1 L (25-47) % [place] % (Auto) 3.3 (1-9) % Eos % (Auto) 0.7 (0-6) % Baso % (Auto) 0.5 (0-2) % Absolute Neuts (auto) 6.7 (1.5-7.7) 10^3/ul Absolute Lymphs (auto) 1.0 (1.0-4.8) 10^3/ul Absolute Monos (auto) 0.3 (0-0.8) 10^3/ul Absolute Eos (auto) 0.1 (0-0.6) 10^3/ul Absolute Basos (auto) 0 (0-0.2) 10^3/ul Absolute Nucleated RBC 0 10^3/ul Nucleated RBC % 0 Assess/Plan/Problems-Billing Assessment: 41 yo M with h/o HTN(not treated) presents with sudden onset of "dizziness". H/o recent travel to [place] and [place] - Patient Problems (1) Nystagmus Comment: MRV neg. MRI brain shows brain stem CVA. Echo with bubble neg for PFO. JASMYNE pending Cont full anticoagulation with lovenox and ASA. Appreciate neurology consult. D/w Dr. Haji hypercoag w/up pending. Anticoardiloipin atnibodies neg. Lipitor started for LDL at 99. PT/ eval pending. Plan to d/c home with outpatient PT (2) DVT prophylaxis Comment: lovenox (3) HTN (hypertension) Comment: SBP's in 140's, cont permissive HTN Status and Disposition: inpatient. Possible d/c in AM after PT eval for stairs
[2017-05-25] MEDS ORDERED: Lidocaine 2% VISCOUS* 15 ML UDC ONE (14:15)
[2017-05-25] MEDS ORDERED: Midazolam* 1 MG/ML 5 ML VIAL (5 MG) ONE (14:15)
[2017-05-25] MEDS ORDERED: Flumazenil* 0.1 MG/ML 5 ML MDV ONE (14:15)
[2017-05-25] MEDS ORDERED: Naloxone* 0.4 MG/ML 1 ML VIAL ONE (14:15)
[2017-05-25] MEDS ORDERED: fentaNYL* 50 MCG/ML 2 ML VIAL (100 MCG VIAL) ONE (14:15)
--- NOTE | 2017-05-25 16:53 | TEE ---
Patient: QUITA ANNE [facility] Rec#: [id number] : 1975 Date: 05/25/2017 Age: 41y Height: 175 cm / 68.9 in Weight: 90 kg / 198.4 lbs Sex: M BSA: 2.06 Room#: 431 Admit Date#: 05/23/2017 Type: Inpatient Referring: Kayce Haji MD Performing: Magalie Lane MD Reading: Magalie Lane MD Brushing Operator: Kayce Howe RD,RDMS Nurse: NoéLeann Roberson Transesophageal Echocardiogram Indication: CVA BP: 158/107 HR: 71 Rhythm: NSR Findings History: HTN Technical Comments: The study quality is good. Left Ventricle: The left ventricular chamber size is normal. Mild concentric left ventricular hypertrophy is observed. Global left ventricular wall motion and contractility are within normal limits. The estimated ejection fraction is 55-60%. Normal left ventricular diastolic filling is observed. Left Atrium: The left atrial chamber size is normal. The left atrial appendage velocity is normal. There is no thrombus visualized in the left atrial appendage. Right Ventricle: The right ventricular chamber size and systolic function are within normal limits. Right Atrium: The right atrial cavity size is normal. A prominent eustachian valve is noted in the right atrium. A patent foramen ovale is not demonstrated with color Doppler and agitated contrast. Aortic Valve: The aortic valve is trileaflet. There is no evidence of aortic valve thickening. Systolic excursion of the aortic valve is normal. There is a trace of aortic regurgitation. There is no evidence of aortic stenosis. Mitral Valve: The mitral valve leaflets appear normal. There is a trace of mitral regurgitation. Tricuspid Valve: The tricuspid valve leaflets are normal. There is trace tricuspid regurgitation. Pulmonic Valve: The pulmonic valve appears normal. There is a trace pulmonic regurgitation. Pericardium: There is no significant pericardial effusion. Aorta: There is mild dilatation of the ascending aorta. There is mild dilatation of the aortic root. Pulmonary Artery: The main pulmonary artery appears normal. Venous: The inferior vena cava appears normal. The flow pattern of the pulmonary veins appear normal. The superior vena cava appears normal. JASMYNE Procedures: All standard views were attempted within the limitations of patient tolerance and safety. History and physical as well as labs were reviewed. The patient was in a fasting state. Risks and benefits of the procedure, including alternatives, were discussed and written informed consent was obtained. The patient and/or their health care airport representative expressed understanding of the procedure, risks and benefits. Baseline and continuous monitoring of blood pressure, heart rate, pulse oximetry and heart rhythm was performed throughout the procedure. The appropriate time-out procedure was performed as per [facility] protocol. The patient was placed in the left lateral decubitus position. The patient's posterior pharynx was anesthetized with 20ml of 2% viscous lidocaine. The patient received IV Midazolam with a total dose of 10 mg The patient received IV Fentanyl with a total dose of 100 mcg An oral bite block was inserted for protection of oral dentition. The multiplane transesophageal echocardiogram probe was inserted through the posterior oropharynx and advanced into the esophagus without difficulty. Multiple 2D images were obtained of the heart and its related structures. Color flow Doppler was used for evaluation. Spectral Doppler was also used. The atrial septum was interrogated with color flow Doppler. At the conclusion of the procedure the probe was removed with continuous suction without complications. The patient tolerated the procedure with no apparent complications. Contrast: Intravenous agitated saline contrast was used to assess intracardiac shunting. Images 36, 37, 39 Conclusions Mild concentric left ventricular hypertrophy is observed. Global left ventricular wall motion and contractility are within normal limits. The estimated ejection fraction is 55-60%. Normal left ventricular diastolic filling is observed. The right ventricular chamber size and systolic function are within normal limits. There is no thrombus visualized in the left atrial appendage. A prominent eustachian valve is noted in the right atrium. No PFO demonstrated with color Doppler and agitated contrast. All valves appear structurally normal. There is a trace of aortic regurgitation. There is a trace of mitral regurgitation. There is trace tricuspid regurgitation. There is mild dilatation of the ascending aorta: 3.7 cm. No cardioembolic source identified. Compared with prior transthoracic echo of 05/23/17, no significant changes. Measurements Name Value Normal Range IVSd (2D) 1.2 cm (0.6 - 1) LVPWd (2D) 1.1 cm (0.6 - 1) Aortic Annulus 2.1 cm (1.4 - 2.6) Ao root diameter (2D) 3.6 cm (2.1 - 3.5) Ascending Ao 3.7 cm (2.1 - 3.4) Name Value Normal Range MV E-wave Vmax 0.7 m/sec - MV deceleration time 183 msec - MV A-wave Vmax 0.5 m/sec - MV E:A ratio 1.4 ratio - P. vein S-wave Vmax 0.6 m/sec - P. vein D-wave Vmax 0.3 m/sec - P. vein S:D Vmax ratio 1.9 ratio - P. vein A-wave duration 67 msec -
[2017-05-25] MEDS: Atorvastatin* 40 MG TAB PO SCH (17:36)
[2017-05-25] MEDS ORDERED: Omeprazole CAP* 20 MG ONE (21:41)
[2017-05-25] MEDS ORDERED: Aspirin Low Dose CHEW TAB* 81 MG ONE (21:41)
--- NOTE | 2017-05-26 01:05 | CONS ---
CONSULTATION REPORT: DATE OF VISIT: 05/25/17 HISTORY OF PRESENT ILLNESS: Mr. Trevizo has noted continued improvement in instability and difficulty with his eyes, although, he still has significant difficulty. He has noticed more change in facial sensation on the right hand side and even inside the mouth with the change in ability to detect cold versus hot on the right side of his mouth. PHYSICAL EXAMINATION: On today's visit, his blood pressure was last recorded at 157/99. His maximum in the last 24 hours was 157/101. He had a recent pulse of 71, respiratory rate 12, saturation 98%. He had a normal S1 and S2. No murmur. No carotid bruits. His lungs were clear to auscultation. There was no evidence of peripheral edema. He had full extraocular movements. No nystagmus was noted; however, after he walked and turned, nystagmus was noted on to the left. He had full lawrence to confrontation. His facial expression was symmetric. Sensation was decreased to cold and to sharp and light touch in the right V1, V2, V3 distribution. Palate was upgoing. Tongue was midline. Sternocleido-mastoid and trapezius were 5/5 in strength. There was normal bulk and tone. No pronator drift. Good strength on today's visit in the arms and legs. Normal [id number] and chtf-dl-[id number] movements. There was slight past pointing in the right arm when trying to touch the nose with his eyes closed. He was able to walk with gently holding on to the examiner's hand with increased stance at about 1 foot, markedly improved from previous. When he turned, he again felt dizzy and nystagmus was noted. LABORATORY DATA: Data includes sedimentation rate of 13. Anti-cardiolipin antibody was negative. Transesophageal echocardiogram is pending. IMPRESSION: Mr. Trevizo is a 41-year-old gentleman with a history of brainstem ischemia with history of untreated hypertension going through further workup with ongoing monitoring on telemetry and a transesophageal echocardiogram. He is currently on aspirin and Lipitor as well as he was originally started on Lovenox for possibility of venous thrombosis, which has been excluded. As long as there is no evidence of clot on JASMYNE today, this will be stopped. At this point, hypertension is his main risk factor. We are seeing no evidence of vasculitis. Hypercoagulable workup is still pending. Results back so far have been negative. We re-reviewed the symptoms of sleep apnea on today's visit and his indicates that he does snore significantly. Accordingly, I would get evaluation for sleep apnea as an outpatient. I would also consider long-term monitoring and referral to soa integration developer as an outpatient if no other cause is found. We reviewed his echocardiogram in detail and there were some questions that may need to be addressed with Cardiology. He will follow up Dr. Rivera. On today's visit, we talked about second opinion and the fact that this is only natural at age 41 with a stroke. We talked about options of second opinion at [facility], at [place] or another institution that he may choose, in particular with a vascular neurologist. They are to let me know if they want to proceed. He was evaluated for rehab and he has been told that he is clinically too good for rehab. They were asking about alternative rehab institution versus outpatient PT here in [place]. I would highly suggest [facility] for physical therapy and discussed his qualifications as well as his efforts to initiate a support group and other support groups in [place]. Extensive education was given regarding all the above issues, differential diagnosis, etiology, workup, treatment, potential complications such as mood disorder. Case was discussed with Dr. Bill. TIME SPENT: 60 minutes were spent in direct patient care, over 50% of this time was spent in education and counseling regarding the above topics. [id number]/[facility] #: [id number] ALEKSANDAR
[2017-05-26] MEDS: Omeprazole CAP* 20 MG PO SCH (05:13)
[2017-05-26] MEDS: Aspirin Low Dose CHEW TAB* 81 MG PO SCH (08:04)
[2017-05-26] MEDS: [UNRECOGNIZED DRUG - OTHER] PO SCH (08:04)
[2017-05-26] MEDS: FATTY ACIDS PO SCH (08:04)
[2017-05-26] MEDS: OMEGA PO SCH (08:04)
[2017-05-26] MEDS: VITAMIN D3 1000 UNIT PO SCH (08:05)
[2017-05-26] MEDS: B COMPLEX PO SCH (08:05)
[2017-05-26 10:55] LABS: Prothrombin 20210 Mutation Negative (Negative)
[2017-05-26 10:56] LABS: Factor V Leiden Mutation Negative (Negative)
[2017-05-26 11:05] VITALS: BP 149/101
[2017-05-26 16:32] LABS: Beta 2 Glycoprotein IgG <9.4 U/mL
--- NOTE | 2017-05-27 05:05 | PN ---
FOLLOWUP NOTE: DATE OF FOLLOWUP: 05/26/17 HISTORY OF PRESENT ILLNESS: Malik Trevizo has been in hospital for a brain stem stroke. He continues to improve. He feels his facial sensation abnormality has improved. His walking has improved and his vision has improved. There is still significant abnormalities but he is better than yesterday. There have been no new concerns. On today's visit, we had a family meeting with Malik Trevizo, his , and father- in-law, and Dr. Bill. We reviewed the potential etiologies for stroke, a small region in the brain stem suggestive of small vessel stroke most likely secondary to untreated hypertension for which he will be started on low-dose lisinopril. We waited to start a blood pressure medication, allowing permissive hypertension for a week. We will start on lisinopril, and he will follow up with Dr. Alec Botello. In regards to treatment of stroke, he has been started on aspirin 81 mg p.o. every day. We talked about different formulations of aspirin dose. He has also been started on atorvastatin 40 mg p.o. q. p.m. We talked about potential benefits per SPARCL trial, as well as risks of side effects with the need for monitoring of liver function tests, the potential side effect of myopathy, and the importance of letting us know if he gets muscle discomfort. For differential diagnosis of stroke, we looked for cardioembolic source of stroke and no cause has been found on transesophageal echocardiogram. He has been monitored on telemetry. I have suggested to follow up with cardiology for his questions regarding findings noted on transthoracic echocardiogram as well as for evaluation for Linq monitor given his age. One cannot exclude the possibility of cardioembolic stroke. Hypercoagulable workup has been obtained and since yesterday we have received the results of factor II prothrombin and factor V Leiden, which are both negative. He has had sedimentation rate, which was 13. His AASHISH is pending. His anticardiolipin antibodies are negative. Beta 2 glycoprotein is pending. He had negative lupus anticoagulant based on ProTime, normal protein C and S activity, negative protein C resistance, and normal antithrombin III. He had been on Lovenox during the admission because of question of venous thrombosis, which was excluded based on scanning and Lovenox has been stopped. We talked about risk factor of sleep apnea and he does snore. We will plan referral to sleep clinic as an outpatient. Education was given regarding recovery from stroke, the importance of rest, the importance of treatment of blood pressure, mindfulness, and approach to stress. He may benefit from getting involved in activity such as meditation and being involved in mindfulness. We talked about the role of diet in stroke and the data behind Mediterranean diet. He had thought of getting involved in exercise; at this point, I have cautioned him against any activity such as jogging or lifting weights. At this point, he cannot drive given his clinical status. He should work with physical therapy on recovery. He may find that he is much more tired , and cannot tolerate as much activities as he was able to do in the past. In addition, sometimes people can feel that their cognition is affected in the setting of stress and life change with stroke in non-cortical territories. He needs to watch carefully for signs and symptoms of depression, anxiety, and be treated accordingly. Followup has been planned with Dr. Rivera in the outpatient clinic as he saw the patient initially in hospital. A consult has been suggested with Dr. Hurt for review of echocardiogram and then further evaluation with Linq monitor. Lastly, he asked about work. 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 There is a very high chance he will not be able to function at this level during this semester, and will need to take medical leave for recovery. He is improving in hospital and we will observe how he does over the next week before seeing Dr. Botello. Further decisions can be made at that time. Over 40 minutes was spent in direct riyz-ma-eiam patient care. Over 50% of the time was spent in education and counseling regarding above issues. All questions were answered. [id number]/[facility] #: [id number] ALEKSANDAR
--- NOTE | 2017-05-27 11:30 | DS ---
CC: Dr. Santamaria; Dr. Rivera; Dr. Hurt; Dr. Botello * DISCHARGE SUMMARY: DATE OF ADMISSION: 05/22/17 DATE OF DISCHARGE: 05/26/17 PRIMARY CARE PROVIDER: Dr. Botello. 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 SECONDARY DIAGNOSES: History of untreated hypertension. MEDICATIONS AT DISCHARGE: Include: 1. Aspirin 81 mg daily. 2. Lipitor 40 mg daily. 3. Lisinopril 2.5 mg daily, to be started on 05/30/17. 4. The patient is also okay to continue his dietary supplements that he takes at home, which includes omega-3 fatty acids, probiotics and multivitamins. LABORATORY DATA: Performed during the hospital stay included: On 05/23/17: White blood cell count of 9.8, hemoglobin of 12.8, hematocrit of 38, and platelets of 190. ESR was 13. PT was 11.5, INR 1.0. On 05/25/17: Sodium of 138, potassium 3.6, chloride 104, carbon dioxide 26, BUN 14, creatinine 0.94. Cholesterol profile showed triglycerides of 223, cholesterol total of 185, LDL of 99 and HDL of 41. TSH was 0.8. Urinalysis was unremarkable on admission. Hypercoagulable workup included anticardiolipin antibodies that were negative. Prothrombin [id number] mutation was negative. Lupus anticoagulant antibodies were negative. Protein C activity was 115, which was within normal limits. APC resistance was normal. Protein S activity was at 137, within normal limits. Factor V Leiden mutation was negative. Studies pending at the time of this dictation includes AASHISH and beta-2 glycoprotein levels. Head MRI obtained on 05/23/17. Impression: "filling defect of the right transverse sinus. This is felt to represent arachnoid granulation. No obstruction is noted other than the one on right transverse sinus." Brain MRI obtained on 05/23/17. Impression: "tiny infarct involving the right lateral aspect of the medulla. Signal abnormality in the right frontal lobe without restriction or diffusion. Postcontrast study is suggested to exclude enhancing mass. No other vessels are noted. Chronic sinusitis is noted in the maxillary sinuses. Defect in the right transverse sinus likely represents an arachnoid granulation." CT angiogram of the head and neck. Impression: "CT findings are most compatible with multifocal non-occlusive sinus thrombosis. Normal CT angiography of the head and neck. Moderate paranasal sinus mucosal disease involving the maxillary sinuses." Transthoracic echocardiogram with bubble study obtained on 05/23/17. Conclusion : The left ventricular chamber size is normal. Borderline LVH. Estimated ejection fraction of 60% to 65%. There is mild aortic regurgitation, trace mitral regurgitation, trace tricuspid regurgitation and trace pulmonic regurgitation. There was mild dilatation of the ascending aorta." Bubble study was negative. Transesophageal echocardiogram obtained on 05/25/17: Conclusion: Mild concentric LVH observed. Global left ventricular wall motion and conductivity within normal limits. The estimated ejection fraction is 55% to 60%. Normal left ventricular diastolic filling is observed. The right ventricular chamber size and systolic function are within normal limits. There is no thrombus visualized in the left atrial appendage. A prominent eustachian valve was noted in the right atrium. No PSO demonstrated with color Doppler and agitated contrast. All szymanski appeared structurally normal. There is trace of aortic regurgitation, trace mitral regurgitation, trace tricuspid regurgitation and mild dilatation of the ascending aorta at 3.7 cm. No cardioembolic source is identified. Compared with prior transthoracic echo on 05/23/17, no significant changes." CONSULTATIONS DURING THE HOSPITAL STAY: Included Dr. Rivera and Dr. Haji from Neurology. HOSPITALIZATION COURSE: Malik Trevizo is a 41-year-old male with history of nontreated hypertension who presented to the hospital complaining of dizziness. The patient was noted to have upbeating nystagmus and ataxia. He was admitted with a working diagnosis of brainstem stroke. Brain MRI obtained on 05/23/17 showed a small stroke on the right side of the patient's medulla. Initially also it was noted the patient's CT angiogram which showed possibility of cyanosed thrombosis and due to that MRV of the head was performed which showed that there were actually arachnoid granulations. Nevertheless, the patient was treated with Lovenox with a full anticoagulation dose throughout his hospital stay until the day prior to discharge. He was also placed on aspirin, and with noted hyperlipidemia, on the statin. Lovenox was discontinued the day prior to his discharge. Hypercoagulable workup as mentioned above up to now is so far negative. A transthoracic and later on transesophageal echocardiogram were negative for PFO and negative for cardioembolic source of stroke. Throughout the patient's hospital stay, the patient underwent physical therapy, occupational therapy evaluation and he did very well with physical therapy, but at the time of discharge his nystagmus was almost gone and his ataxia was markedly diminished. Nevertheless, he is to ambulate with a roller walker initially. I had several long discussions with the patient and patient's family in regards of further management with physical therapy as outpatient for which the patient was referred. The patient also was recommended to follow up with his primary care provider who is going to be Dr. Botello with an appointment scheduled on 06/07. The patient also wishes to talk with the knitting teacher about echocardiogram results. Dr. Haji also recommended for the patient to be evaluated for the possibility of long-term cardiac monitoring. The patient was recommended to see Dr. Hurt in approximately 1 month. The patient is also scheduled to see Dr. Rivera on 06/23/17. Please note that the patient's telemetry monitoring throughout this hospital stay showed no arrhythmias and the patient continued to be in normal sinus rhythm throughout his at hospital stay. PHYSICAL EXAM: At discharge, blood pressure of 149/101, heart rate of 80 and regular, respiratory rate 18, oxygen saturation 97% on room air, temperature 97.7. General: The patient is a very pleasant 41-year-old male, who is in no acute distress, alert, awake and oriented x3. HEENT: Head is atraumatic, normocephalic. Eyes: Pupils are equal and reactive to light and accommodation. Nystagmus is very mild and greatly improved from prior in bilateral eyes. Neuro Evaluation: The patient has very mild ataxia noted and still feels safer with the walker when walking. Motor strength is 5/5 bilaterally. The patient still complains of mild numbness on his right side of his face, but otherwise cranial nerves II through XII are grossly intact. Motor strength is 5/5 bilaterally and sensation apart from the sensation of the right side of the face is intact. The patient is going to be discharged to home. Recommendation to follow up with outpatient physical therapy as well as Dr. Rivera, Dr. Hurt and Dr. Botello as previously recommended. TIME SPENT: Approximately 60 minutes was spent in discharge of this patient and approximately 40 minutes was spent face to face with the patient and patient 's family explaining the discharge procedure and counseling and answering questions. [id number]/[facility] #: [id number] ALEKSANDAR
== END 2017-05-26 14:05 | disposition home or self-care (01) | DRG 45 ==
LOC: ED 08:03 → MEDTELE 15:18 → OBSVTOIN 05-23 10:00
PROVIDERS: ADMIT Hospitalist; ATTEND Internal Medicine
PROC: B24BZZ4 Ultrasonography of Heart with Aorta, Transesophageal (ICD-10-PCS; principal; 2017-05-25)
DX: I63.9 Cerebral infarction, unspecified (principal); I08.3 Combined rheumatic disorders of mitral, aortic and tricuspid valves; I10 Essential (primary) hypertension; R40.2412 Glasgow coma scale score 13-15, at arrival to emergency department; H49.9 Unspecified paralytic strabismus; H55.09 Other forms of nystagmus; R11.0 Nausea; R27.0 Ataxia, unspecified; H53.2 Diplopia; J32.0 Chronic maxillary sinusitis; I77.819 Aortic ectasia, unspecified site; E78.5 Hyperlipidemia, unspecified; R20.0 Anesthesia of skin; G46.3 Brain stem stroke syndrome; L92.8 Other granulomatous disorders of the skin and subcutaneous tissue; Z72.89 Other problems related to lifestyle; Z82.49 Family history of ischemic heart disease and other diseases of the circulatory system
CPT/HCPCS: 36415; 70450; 70496; 70498; 70544; 70551; 71010; 80048; 80053; 80061; 80320; 81003; 81240; 81241; 83036; 83605; 83735; 84443; 84484; 85025; 85300; 85303; 85306; 85307; 85610; 85613; 85652; 85730; 86038; 86146; 86147; 93005; 93306; 96374; 99284; A9270-GY; G0378; G0480; J1650; J2060; J2250; J2310; J2405; J3010; J3411; Q9967

== ENCOUNTER 2019-03-15 08:57 | Emergency (ER) | payer OTHER ==
[2019-03-15 09:04] VITALS: BP 138/92
--- NOTE | 2019-03-15 09:57 | UC ---
Eye Complaint HPI - HPI Summary HPI Summary: 43 yo male presents with b/l eye redness and drainage since this morning - right > left. He tells me that for the last week he has had sinus congestion and a dry cough. Has been taking OTC cold medicine with little relief. This morning he woke up with b/l eye redness and yellow crusting. He does wear glasses, but no contacts. Denies trauma or FB, fever, chills. - History of Current Complaint Chief Complaint: UCEye Stated Complaint: EYE ISSUE Time Seen by Provider: 03/15/19 09:57 Hx Obtained From: Patient Onset/Duration: Gradual Onset Severity Currently: None Pain Intensity: 0 - Allergies/Home Medications Allergies/Adverse Reactions: Allergies Allergy/AdvReac Type Severity Reaction Status Date / Time No Known Allergies Allergy Verified 03/15/19 09:06 PMH/Surg Hx/FS Hx/Imm Hx Endocrine History: Dyslipidemia Cardiovascular History: Hypertension - Surgical History Surgical History: Yes Surgery Procedure, Year, and Place: TONILS, WISDOM TEETH,MEDTRONIC LOOP RECORDER IMPLANTED AT [facility] [place] - Family History Known Family History: Positive: Hypertension - Social History Occupation: Employed Full-time Lives: With Family Alcohol Use: Daily Alcohol Amount: 3 beers daily Substance Use Type: None Smoking Status (MU): Former Smoker - Immunization History Most Recent Influenza Vaccination: fall 2015 Most Recent Pneumonia Vaccination: never Review of Systems All Other Systems Reviewed And Are Negative: Yes Constitutional: Positive: Negative Skin: Positive: Negative Eyes: Positive: Drainage, Eye Redness ENT: Positive: Nasal Discharge, Sinus Congestion Respiratory: Positive: Cough Cardiovascular: Positive: Negative Gastrointestinal: Positive: Negative Neurovascular: Positive: Negative Neurological: Positive: Negative Psychological: Positive: Negative Physical Exam - Summary Physical Exam Summary: GENERAL: WDWN. No pain distress. SKIN: No rashes, sores, lesions, or open wounds. HEENT: Head: AT/NC Eyes: EOM intact. PERRLA. RIGHT EYE: Mild scleral injection. Conjunctiva with mild erythema and inflammation. Mild clear/yellow discharge. LEFT EYE: Conjunctiva with slight inflammation and without discharge. No FBs appreciated Ears: Hearing grossly normal. TMs intact, no bulging, erythema, or edema. Nose: Nasal mucosa pink and moist. NTTP maxillary and frontal sinus. Throat: Posterior oropharynx without exudates, erythema, or tonsillar enlargement. Uvula midline. Positive post nasal drip NECK: Supple. Nontender. No lymphadenopathy. CHEST: CTAB. No r/r/w. No accessory muscle use. Breathing comfortably and in no distress. CV: RRR. Without m/r/g. Pulses intact. Cap refill <2seconds NEURO: Alert. PSYCH: Age appropriate behavior. Triage Information Reviewed: Yes Vital Signs: Initial Vital Signs Temp 98 F 03/15/19 09:03 Pulse 77 03/15/19 09:03 Resp 16 03/15/19 09:03 BP 138/92 03/15/19 09:03 Pulse Ox 99 03/15/19 09:03 Vital Signs Reviewed: Yes Eye Complaint Course/Dx - Course Course Of Treatment: Conjunctivitis bacterial vs viral related to his current cold symptoms. Will treat with anbx eye drops given that he has small children at home and is most concerned about spreading infection to them. - Differential Dx/Diagnosis Provider Diagnosis: Conjunctivitis, Rhinosinusitis Discharge - Sign-Out/Discharge Documenting (check all that apply): Patient Departure All imaging exams completed and their final reports reviewed: No Studies - Discharge Plan Condition: Stable Disposition: HOME Prescriptions: Polymyx/Trimethoprim OPTH* [Polytrim OPHTH*] 1 drop BOTH EYES TID #1 btl Patient Education Materials: Rhinosinusitis (ED), Conjunctivitis (ED) Referrals: No Primary Care Phys,NOPCP [Primary Care Provider] - Additional Instructions: If you develop a fever, shortness of breath, chest pain, new or worsening symptoms - please call your PCP or go to the ED immediately. Your blood pressure was slightly elevated at todays visit. Please see your primary provider within 4 weeks for recheck and re-evaluation - Billing Disposition and Condition Condition: STABLE Disposition: Home
== END 2019-03-15 10:45 | disposition home or self-care (01) ==
LOC: UCEAST 08:57
DX: H10.9 Unspecified conjunctivitis (principal); J32.9 Chronic sinusitis, unspecified; E78.5 Hyperlipidemia, unspecified; I10 Essential (primary) hypertension; Z87.891 Personal history of nicotine dependence
CPT/HCPCS: 99212; G0463